=== PATIENT | male | born 1995 | race Caucasian/White ===

== ENCOUNTER 2021-06-08 18:57 | Emergency (ER) | payer OTHER ==
[2021-06-08 19:48] LABS: HEMOGLOBIN 14.7 gm/dl (14.0-17.5); RED BLOOD COUNT 4.83 M/UL (4.20-5.50); WHITE BLOOD COUNT 5.3 K/UL (4.5-11.0)
[2021-06-08 20:17] LABS: BUN/CREATININE RATIO 15 (0-10)
== END 2021-06-08 22:00 | disposition home or self-care (01) ==
LOC: ER1 18:57
PROVIDERS: Emergency Medicine
DX: R06.02 Shortness of breath (principal); R05.9 Cough, unspecified; R09.81 Nasal congestion; Z20.822 Contact with and (suspected) exposure to COVID-19; F17.200 Nicotine dependence, unspecified, uncomplicated
CPT/HCPCS: 0241U; 71045; 80053; 82550; 82553; 82962; 83605; 83735; 83880; 84484; 85025; 85379; 85652; 86140; 87040; 93005; 99285

== ENCOUNTER 2021-06-28 18:55 | Emergency (ER) | payer OTHER ==
[2021-06-28] MEDS ORDERED: IBUPROFEN600 MG PO (19:52)
[2021-06-28] MEDS ORDERED: NORFLEX 100 MG100 MG PO (19:52)
== END 2021-06-28 19:55 | disposition home or self-care (01) ==
LOC: ER1 18:55
DX: M54.50 Low back pain, unspecified (principal); F17.210 Nicotine dependence, cigarettes, uncomplicated; J45.909 Unspecified asthma, uncomplicated; Z88.8 Allergy status to other drugs, medicaments and biological substances; Z88.0 Allergy status to penicillin; W19.XXXA Unspecified fall, initial encounter; Y93.64 Activity, baseball
CPT/HCPCS: 72100; 99283

== ENCOUNTER 2021-07-17 22:29 | Emergency (ER) | payer OTHER ==
[~2021-07-17 22:29] MED LIST: IBUPROFEN600 MG PO; NORFLEX 100 MG100 MG PO
== END 2021-07-18 02:22 | disposition home or self-care (01) ==
LOC: ER1 22:29
DX: S60.221A Contusion of right hand, initial encounter (principal); F17.210 Nicotine dependence, cigarettes, uncomplicated; W22.8XXA Striking against or struck by other objects, initial encounter
CPT/HCPCS: 73130; 99283